=== PATIENT | female | born 1960 | race African-American/Black ===

== ENCOUNTER 2021-07-19 21:25 | Inpatient (IN) | payer OTHER ==
[2021-07-19 23:58] VITALS: BMI 29.8
[2021-07-20] MEDS ORDERED: ACETAMINOPHEN 325 MG TABLET (FP) PO PRN (00:40)
[2021-07-20] MEDS ORDERED: MAGNESIUM HYDROX 2400MG/30ML ORAL SUSPENSION 30 ML CUP PO PRN (00:40)
[2021-07-20] MEDS ORDERED: NICOTINE 10 MG CARTRIDGE (INHALER) IH PRN (00:40)
[2021-07-20] MEDS ORDERED: MAG HYDROX/AL HYDROX/SIMETH 30 ML UNIT-DOSE CUP PO PRN (00:40)
[2021-07-20] MEDS ORDERED: BISMUTH SUBSALICYLATE 524 MG/30 ML PO PRN (00:40)
[2021-07-20] MEDS ORDERED: MAGNESIUM CITRATE 300 ML BOTTLE PO PRN (00:40)
[2021-07-20] MEDS ORDERED: MENTHOL/PHENOL 1 EACH UD MM PRN (00:40)
[2021-07-20] MEDS ORDERED: IBUPROFEN 400 MG TABLET (FP) PO PRN (00:40)
[2021-07-20] MEDS ORDERED: methaDONE HCL 10 MG TABLET (FOR DETOX USE ONLY) PO ONE (01:21)
[2021-07-20] MEDS ORDERED: methaDONE HCL 10 MG TABLET (FOR DETOX USE ONLY) ONE (03:21)
[2021-07-20] MEDS: diazePAM 5 MG TABLET PO SCH ×4 (04:09→22:37)
[2021-07-20] MEDS ORDERED: PRENATAL VITAMINS W/ FOLIC ACID TABLET (FP) PO SCH (10:00)
[2021-07-20] MEDS: NICOTINE 14 MG/24 HOURS TOPICAL PATCH TD SCH (10:32)
[2021-07-20] MEDS: METHOCARBAMOL 500 MG TABLET PO PRN (10:32)
[2021-07-20] MEDS: PRENATAL VITAMINS W/ FOLIC ACID TABLET (FP) PO SCH (10:32)
[2021-07-20] MEDS: LOSARTAN POTASSIUM 50 MG TABLET PO SCH (17:37)
[2021-07-20] MEDS ORDERED: FUROSEMIDE 20 MG TABLET (FP) PO ONE (22:25)
[2021-07-20] MEDS: THIAMINE HCL 100 MG TABLET (FP) PO SCH (22:37)
[2021-07-20] MEDS: MELATONIN 5 MG TABLETS PO SCH (22:37)
[2021-07-20] MEDS: METHYL SALICYLATE/MENTHOL OINT 30 GM TUBE TP SCH (22:39)
[2021-07-21] MEDS: diazePAM 5 MG TABLET PO SCH ×3 (06:04→22:40)
[2021-07-21] MEDS: ONDANSETRON *ODT* 4 MG TABLET SL PRN ×2 (06:05→17:41)
[2021-07-21] MEDS ORDERED: TRIMETHOBENZAMIDE HCL 200MG/2ML INJ IM ONE (06:22)
[2021-07-21] MEDS: diazePAM 5 MG TABLET PO PRN (09:17)
[2021-07-21] MEDS ORDERED: methaDONE HCL 10 MG TABLET (FOR DETOX USE ONLY) ONE (09:41)
[2021-07-21] MEDS: NICOTINE 14 MG/24 HOURS TOPICAL PATCH TD SCH (10:33)
[2021-07-21] MEDS: LOSARTAN POTASSIUM 50 MG TABLET PO SCH (10:35)
[2021-07-21] MEDS: PRENATAL VITAMINS W/ FOLIC ACID TABLET (FP) PO SCH (10:56)
[2021-07-21] MEDS: METHYL SALICYLATE/MENTHOL OINT 30 GM TUBE TP SCH ×2 (11:07→22:43)
[2021-07-21] MEDS: ACETAMINOPHEN 325 MG TABLET (FP) PO PRN ×2 (15:05→17:41)
[2021-07-21] MEDS ORDERED: TRIMETHOBENZAMIDE HCL 200MG/2ML INJ IM PRN (17:22)
[2021-07-21] MEDS ORDERED: cloNIDine HCL 0.1 MG TABLET PO ONE (17:23)
[2021-07-21] MEDS: cloNIDine HCL 0.1 MG TABLET PO PRN (17:47)
[2021-07-21] MEDS: MELATONIN 5 MG TABLETS PO SCH (22:40)
[2021-07-21] MEDS: THIAMINE HCL 100 MG TABLET (FP) PO SCH (22:40)
[2021-07-22] MEDS ORDERED: methaDONE HCL 10 MG TABLET (FOR DETOX USE ONLY) PO ONE ×2 (10:00→15:30)
[2021-07-22] MEDS: METHYL SALICYLATE/MENTHOL OINT 30 GM TUBE TP SCH ×2 (11:05→22:56)
[2021-07-22] MEDS: diazePAM 5 MG TABLET PO SCH ×2 (11:05→18:45)
[2021-07-22] MEDS: NICOTINE 14 MG/24 HOURS TOPICAL PATCH TD SCH (11:06)
[2021-07-22] MEDS: PRENATAL VITAMINS W/ FOLIC ACID TABLET (FP) PO SCH (11:06)
[2021-07-22] MEDS: LOSARTAN POTASSIUM 50 MG TABLET PO SCH (11:06)
[2021-07-22] MEDS: FUROSEMIDE 20 MG TABLET (FP) PO SCH (11:06)
[2021-07-22] MEDS: cloNIDine HCL 0.1 MG TABLET PO PRN ×2 (15:49→21:13)
[2021-07-22] MEDS: THIAMINE HCL 100 MG TABLET (FP) PO SCH (21:13)
[2021-07-22] MEDS: diazePAM 5 MG TABLET PO PRN (21:13)
[2021-07-22] MEDS: MELATONIN 5 MG TABLETS PO SCH (22:57)
[2021-07-23] MEDS: DICLOFENAC SODIUM 25 MG TABLET.DR PO PRN ×2 (01:02→09:04)
[2021-07-23] MEDS ORDERED: amLODIPine BESYLATE 5 MG TABLET (FP) PO ONE (01:17)
[2021-07-23] MEDS: METHOCARBAMOL 500 MG TABLET PO PRN ×2 (05:54→15:00)
[2021-07-23] MEDS ORDERED: diazePAM 5 MG TABLET PO ONE (06:00)
[2021-07-23] MEDS ORDERED: methaDONE HCL 10 MG TABLET (FOR DETOX USE ONLY) ONE (09:00)
[2021-07-23] MEDS: LOSARTAN POTASSIUM 50 MG TABLET PO SCH (09:02)
[2021-07-23] MEDS: amLODIPine BESYLATE 5 MG TABLET (FP) PO SCH (09:02)
[2021-07-23] MEDS: FUROSEMIDE 20 MG TABLET (FP) PO SCH (09:02)
[2021-07-23] MEDS: PRENATAL VITAMINS W/ FOLIC ACID TABLET (FP) PO SCH (09:04)
[2021-07-23] MEDS: NICOTINE 14 MG/24 HOURS TOPICAL PATCH TD SCH (09:05)
[2021-07-23] MEDS ORDERED: amLODIPine BESYLATE 5 MG TABLET (FP) PO SCH (10:00)
[2021-07-23] MEDS: METHYL SALICYLATE/MENTHOL OINT 30 GM TUBE TP SCH ×2 (11:08→22:27)
[2021-07-23] MEDS: ACETAMINOPHEN 325 MG TABLET (FP) PO PRN (15:00)
[2021-07-23] MEDS: MELATONIN 5 MG TABLETS PO SCH (22:27)
[2021-07-23] MEDS: THIAMINE HCL 100 MG TABLET (FP) PO SCH (22:27)
[2021-07-24] MEDS: METHOCARBAMOL 500 MG TABLET PO PRN ×3 (02:59→22:23)
[2021-07-24] MEDS ORDERED: methaDONE HCL 10 MG TABLET (FOR DETOX USE ONLY) PO ONE (10:00)
[2021-07-24] MEDS: LOSARTAN POTASSIUM 50 MG TABLET PO SCH (10:20)
[2021-07-24] MEDS: PRENATAL VITAMINS W/ FOLIC ACID TABLET (FP) PO SCH (10:20)
[2021-07-24] MEDS: FUROSEMIDE 20 MG TABLET (FP) PO SCH (10:21)
[2021-07-24] MEDS: NICOTINE 14 MG/24 HOURS TOPICAL PATCH TD SCH (10:21)
[2021-07-24] MEDS: METHYL SALICYLATE/MENTHOL OINT 30 GM TUBE TP SCH ×2 (10:21→22:01)
[2021-07-24] MEDS: amLODIPine BESYLATE 5 MG TABLET (FP) PO SCH (10:21)
[2021-07-24] MEDS: THIAMINE HCL 100 MG TABLET (FP) PO SCH (22:00)
[2021-07-24] MEDS: MELATONIN 5 MG TABLETS PO SCH (22:21)
[2021-07-24 23:02] VITALS: PULSE 93
[2021-07-25 07:17] VITALS: BP 144/98; TEMP 98.2
[2021-07-25] MEDS: PRENATAL VITAMINS W/ FOLIC ACID TABLET (FP) PO SCH (09:41)
[2021-07-25] MEDS: FUROSEMIDE 20 MG TABLET (FP) PO SCH (09:41)
[2021-07-25] MEDS: amLODIPine BESYLATE 5 MG TABLET (FP) PO SCH (09:41)
[2021-07-25] MEDS: LOSARTAN POTASSIUM 50 MG TABLET PO SCH (09:41)
== END 2021-07-25 10:10 | disposition home or self-care (01) | DRG 897 ==
LOC: YASAS 21:25 → Y6N 07-20 02:59
PROVIDERS: ADMIT Allergy & Immunology; ATTEND Allergy & Immunology
PROC: HZ2ZZZZ Detoxification Services for Substance Abuse Treatment (ICD-10-PCS; principal; 2021-07-20)
DX: F11.23 Opioid dependence with withdrawal (principal); F14.20 Cocaine dependence, uncomplicated; R78.81 Bacteremia; F10.230 Alcohol dependence with withdrawal, uncomplicated; F17.210 Nicotine dependence, cigarettes, uncomplicated; F19.24 Other psychoactive substance dependence with psychoactive substance-induced mood disorder; D86.9 Sarcoidosis, unspecified; I10 Essential (primary) hypertension; R50.9 Fever, unspecified; R00.0 Tachycardia, unspecified; Z88.0 Allergy status to penicillin; Z88.1 Allergy status to other antibiotic agents; Z88.8 Allergy status to other drugs, medicaments and biological substances
CPT/HCPCS: 36415; 71045-TC-FY; 80053; 81003; 83605; 84484; 85025; 85610; 85651; 85730; 86140; 86780; 87040; 87086; 87804; 93005; 93010; 96374; 99284-25; 99285-25; C9803; J0735; Q0162; U0003; U0005

== ENCOUNTER 2021-07-21 23:32 | Emergency (ER) | payer OTHER ==
[2021-07-21 23:47] VITALS: BMI 28.2
[2021-07-22 01:44] LABS: BASO % 0.4 % (0-2.0); HEMATOCRIT 43.7 % (32.4-45.2); HEMOGLOBIN 14.4 GM/dL (10.7-15.3); LYMPH % 14.4 % (8-40); MCHC 32.8 g/dl (32.0-36.0); MEAN CELL VOLUME 82.2 fl (80-96); MEAN PLT VOLUME 10.1 fl (7.5-11.1); MONO % 10.4 % (3.8-10.2); NEUT % 74.8 % (42.8-82.8); PLATELET COUNT 226 10^3/uL (134-434); RBC 5.32 M/mm3 (3.60-5.2); RDW 14.6 % (11.6-15.6); WHITE BLOOD COUNT 12.7 K/mm3 (4.0-10.0)
[2021-07-22 01:49] LABS: INR 0.96 (0.83-1.09); PROTHROMBIN TIME (PATIENT) 11.8 SEC (9.7-13.0)
[2021-07-22 01:53] LABS: ACTIVATED PTT 29.5 SECONDS (25.2-36.5)
[2021-07-22 02:00] LABS: CHLORIDE 97 mmol/L (98-107); SODIUM 135 mmol/L (136-145)
[2021-07-22 02:03] LABS: CALCIUM 9.6 mg/dL (8.5-10.1)
[2021-07-22 02:04] LABS: ALBUMIN 3.7 g/dl (3.4-5.0); ANION GAP 10 MMOL/L (8-16); BLOOD UREA NITROGEN 8.2 mg/dL (7-18); CO2 28 mmol/L (21-32); GLUCOSE,RANDOM 122 mg/dL (74-106)
[2021-07-22 02:07] LABS: CREATININE 0.7 mg/dL (0.55-1.3); SGPT/ALT 20 U/L (13-61)
[2021-07-22 02:08] LABS: BILIRUBIN,TOTAL 0.8 mg/dL (0.2-1); SGOT/AST 11 U/L (15-37)
[2021-07-22 02:11] LABS: ALK PHOS 89 U/L (45-117)
[2021-07-22 02:14] LABS: LACTIC ACID 2.6 mmol/L (0.4-2.0)
[2021-07-22 03:35] LABS: ERYTHROCYTE SEDIMENTATION RATE 2 mm/hr (0-30)
[2021-07-22] MEDS ORDERED: ACETAMINOPHEN 325 MG TABLET (FP) PO ONE (03:35)
[2021-07-22] MEDS ORDERED: LOSARTAN POTASSIUM 50 MG TABLET PO ONE (03:39)
[2021-07-22] MEDS ORDERED: LORazepam 2 MG/ML SDV VIAL IVPUSH ONE (03:39)
[2021-07-22] MEDS ORDERED: LOSARTAN POTASSIUM 50 MG TABLET ONE (04:12)
[2021-07-22] MEDS ORDERED: LORazepam 2 MG/ML SDV VIAL ONE (04:12)
[2021-07-22] MEDS ORDERED: ACETAMINOPHEN 325 MG TABLET (FP) ONE (04:12)
[2021-07-22 04:20] LABS: PH,URINE 8.5 (5.0-8.0); URINE APPEARANCE Clear; URINE BILIRUBIN Negative (NEGATIVE); URINE COLOR Yellow; URINE GLUCOSE (UA) Negative (NEGATIVE); URINE KETONE Negative (NEGATIVE); URINE LEUK ESTERASE Negative (NEGATIVE); URINE NITRITE Negative (NEGATIVE); URINE PROTEIN Negative (NEGATIVE); URINE UROBILINOGEN 0.2 mg/dL (0.2-1.0)
[2021-07-22] MEDS ORDERED: FUROSEMIDE 40 MG TABLET (FP) PO ONE (10:43)
[2021-07-22] MEDS ORDERED: FUROSEMIDE 40 MG TABLET (FP) ONE (10:49)
[2021-07-22 15:04] VITALS: BP 155/94; PULSE 78; TEMP 98
== END 2021-07-22 14:55 | disposition home or self-care (01) ==
LOC: JER 23:32
PROC: 3E033GC Introduction of Other Therapeutic Substance into Peripheral Vein, Percutaneous Approach (ICD-10-PCS; principal; 2021-07-21)
DX: R50.9 Fever, unspecified (principal); I10 Essential (primary) hypertension; F10.239 Alcohol dependence with withdrawal, unspecified
CPT/HCPCS: 36415; 71045-TC-FY; 80053; 81003; 83605; 84484; 85025; 85610; 85651; 85730; 86140; 87040; 87086; 87804; 93005; 93010; 96374; 99285-25; C9803; U0003; U0005

== ENCOUNTER 2021-07-23 15:24 | Emergency (ER) | payer OTHER ==
[2021-07-23 15:46] VITALS: BMI 29.8
[2021-07-23 16:35] LABS: BASO % 0.5 % (0-2.0); EOS % 0.1 % (0-4.5); HEMATOCRIT 48.7 % (32.4-45.2); HEMOGLOBIN 16.4 GM/dL (10.7-15.3); LYMPH % 19.8 % (8-40); MCH 27.9 pg (25.7-33.7); MCHC 33.7 g/dl (32.0-36.0); MEAN CELL VOLUME 82.8 fl (80-96); MEAN PLT VOLUME 10.3 fl (7.5-11.1); MONO % 9.8 % (3.8-10.2); NEUT % 69.8 % (42.8-82.8); PLATELET COUNT 249 10^3/uL (134-434); RBC 5.88 M/mm3 (3.60-5.2); RDW 14.6 % (11.6-15.6); WHITE BLOOD COUNT 13.3 K/mm3 (4.0-10.0)
[2021-07-23 17:04] LABS: CALCIUM 9.8 mg/dL (8.5-10.1)
[2021-07-23 17:05] LABS: BLOOD UREA NITROGEN 15.2 mg/dL (7-18)
[2021-07-23 17:08] LABS: BILIRUBIN,TOTAL 0.8 mg/dL (0.2-1); CREATININE 0.9 mg/dL (0.55-1.3); TOT PROT 8.4 g/dl (6.4-8.2)
[2021-07-23] MEDS ORDERED: LIDOCAINE 5% TOPICAL PATCH TP ONE (18:27)
[2021-07-23] MEDS ORDERED: LIDOCAINE 5% TOPICAL PATCH ONE (18:41)
[2021-07-23] MEDS ORDERED: LIDOCAINE PATCH REMOVAL MC SCH (22:00)
[2021-07-23] MEDS ORDERED: LORazepam 2 MG/ML SDV VIAL IM ONE (23:19)
[2021-07-23] MEDS ORDERED: LORazepam 2 MG/ML SDV VIAL ONE (23:20)
[2021-07-24 02:18] VITALS: BP 142/85; PULSE 79; TEMP 98.9
[2021-07-24] MEDS ORDERED: LORazepam 2 MG/ML SDV VIAL IM ONE (23:19)
== END 2021-07-24 02:18 ==
LOC: JER 15:24
PROC: 3E023NZ Introduction of Analgesics, Hypnotics, Sedatives into Muscle, Percutaneous Approach (ICD-10-PCS; principal; 2021-07-23)
DX: R79.9 Abnormal finding of blood chemistry, unspecified (principal)
CPT/HCPCS: 36415; 80053; 85025; 87040; 99284-25

== ENCOUNTER 2022-02-14 14:14 | Inpatient (IN) | payer OTHER ==
[2022-02-14] MEDS ORDERED: BENZOCAINE/MENTHOL (CHLORASEPTIC ) LOZENGE MM PRN (15:36)
[2022-02-14] MEDS ORDERED: MAGNESIUM CITRATE 300 ML BOTTLE PO PRN (15:36)
[2022-02-14] MEDS ORDERED: MAGNESIUM HYDROX 2400MG/30ML ORAL SUSPENSION 30 ML CUP PO PRN (15:36)
[2022-02-14] MEDS ORDERED: LOPERAMIDE HCL 2 MG CAPSULE PO PRN (15:36)
[2022-02-14] MEDS ORDERED: BISMUTH SUBSALICYLATE 262 MG/15 ML BTL PO PRN (15:36)
[2022-02-14] MEDS ORDERED: NICOTINE 10 MG CARTRIDGE (INHALER) IH PRN (15:36)
[2022-02-14] MEDS ORDERED: ONDANSETRON *ODT* 4 MG TABLET SL PRN (15:36)
[2022-02-14] MEDS ORDERED: chlordiazePOXIDE HCL 25 MG CAPSULE PO PRN (15:36)
[2022-02-14] MEDS ORDERED: NALOXONE HCL 0.4 MG/ML VIAL IM PRN (15:36)
[2022-02-14] MEDS ORDERED: methaDONE HCL 10 MG TABLET (FOR DETOX USE ONLY) PO ONE (15:36)
[2022-02-14] MEDS ORDERED: MAG HYDROX/AL HYDROX/SIMETH 30 ML UNIT-DOSE CUP PO PRN (15:36)
[2022-02-14] MEDS ORDERED: METHOCARBAMOL 500 MG TABLET PO PRN (15:36)
[2022-02-14] MEDS ORDERED: IBUPROFEN 400 MG TABLET (FP) PO PRN (15:36)
[2022-02-14] MEDS ORDERED: ACETAMINOPHEN 325 MG TABLET (FP) PO PRN ×2 (15:36)
[2022-02-14] MEDS ORDERED: DICYCLOMINE HCL 10 MG CAPSULE PO PRN (15:36)
[2022-02-14 15:56] VITALS: BMI 24.3
[2022-02-14] MEDS ORDERED: hydrOXYzine PAMOATE 25 MG CAPSULE (FP) PO SCH (18:00)
[2022-02-14] MEDS: THIAMINE HCL 100 MG TABLET (FP) PO SCH (23:09)
[2022-02-14] MEDS: MELATONIN 5 MG TABLETS PO SCH (23:09)
[2022-02-14] MEDS: chlordiazePOXIDE HCL 25 MG CAPSULE PO SCH (23:10)
[2022-02-15] MEDS: chlordiazePOXIDE HCL 25 MG CAPSULE PO SCH ×4 (07:12→22:45)
[2022-02-15] MEDS ORDERED: methaDONE HCL 10 MG TABLET (FOR DETOX USE ONLY) ONE (08:58)
[2022-02-15] MEDS: PRENATAL VITAMINS W/ FOLIC ACID TABLET (FP) PO SCH (11:09)
[2022-02-15 13:26] LABS: BLOOD UREA NITROGEN 11.4 mg/dL (7-18)
[2022-02-15 13:27] LABS: ALBUMIN 3.6 g/dl (3.4-5.0); CREATININE 0.7 mg/dL (0.55-1.3)
[2022-02-15 13:29] LABS: BILIRUBIN,TOTAL 0.9 mg/dL (0.2-1); CALCIUM 9.5 mg/dL (8.5-10.1); TOT PROT 7.5 g/dl (6.4-8.2)
[2022-02-15 13:37] LABS: HEMATOCRIT 43.6 % (32.4-45.2); HEMOGLOBIN 13.8 GM/dL (10.7-15.3); MCH 27.4 pg (25.7-33.7); MCHC 31.6 g/dl (32.0-36.0); MEAN CELL VOLUME 86.6 fl (80-96); MEAN PLT VOLUME 10.4 fl (7.5-11.1); PLATELET COUNT 213 10^3/uL (134-434); RBC 5.03 M/mm3 (3.60-5.2); RDW 13.5 % (11.6-15.6); WHITE BLOOD COUNT 5.3 K/mm3 (4.0-10.0)
[2022-02-15] MEDS: cloNIDine HCL 0.1 MG TABLET PO PRN ×2 (13:53→22:47)
[2022-02-15] MEDS: MELATONIN 5 MG TABLETS PO SCH (22:47)
[2022-02-15] MEDS: THIAMINE HCL 100 MG TABLET (FP) PO SCH (22:47)
[2022-02-16] MEDS ORDERED: TRIMETHOBENZAMIDE HCL 200MG/2ML INJ IM ONE (05:25)
[2022-02-16] MEDS: cloNIDine HCL 0.1 MG TABLET PO PRN (06:42)
[2022-02-16] MEDS: chlordiazePOXIDE HCL 25 MG CAPSULE PO SCH ×3 (06:42→18:47)
[2022-02-16] MEDS ORDERED: ONDANSETRON *ODT* 4 MG TABLET SL PRN (09:40)
[2022-02-16 09:43] VITALS: BP 185/109; PULSE 86; TEMP 97.1
[2022-02-16] MEDS ORDERED: hydrOXYzine PAMOATE 50 MG CAPSULE (FP) PO ONE (09:44)
[2022-02-16] MEDS ORDERED: methaDONE HCL 10 MG TABLET (FOR DETOX USE ONLY) PO ONE (10:00)
[2022-02-16] MEDS: PRENATAL VITAMINS W/ FOLIC ACID TABLET (FP) PO SCH (11:21)
[2022-02-16] MEDS ORDERED: TRIMETHOBENZAMIDE HCL 200MG/2ML INJ IM PRN (13:00)
[2022-02-16 16:07] LABS: SARS-CoV-2 NAA Detected (Not Detected)
[2022-02-17] MEDS ORDERED: chlordiazePOXIDE HCL 10 MG CAPSULE PO PRN
[2022-02-17] MEDS ORDERED: chlordiazePOXIDE HCL 10 MG CAPSULE PO SCH (05:00)
[2022-02-18] MEDS ORDERED: chlordiazePOXIDE HCL 10 MG CAPSULE PO SCH (05:00)
[2022-02-18] MEDS ORDERED: methaDONE HCL 10 MG TABLET (FOR DETOX USE ONLY) PO ONE (10:00)
[2022-02-19] MEDS ORDERED: chlordiazePOXIDE HCL 10 MG CAPSULE PO ONE (05:00)
== END 2022-02-16 23:05 | disposition short-term general hospital (02) | DRG 896 ==
LOC: YASAS 14:14 → Y3N 16:49
PROVIDERS: ADMIT Allergy & Immunology; ATTEND Allergy & Immunology
PROC: HZ2ZZZZ Detoxification Services for Substance Abuse Treatment (ICD-10-PCS; principal; 2022-02-14)
DX: F11.23 Opioid dependence with withdrawal (principal); U07.1 COVID-19; F10.230 Alcohol dependence with withdrawal, uncomplicated; F17.210 Nicotine dependence, cigarettes, uncomplicated; J42 Unspecified chronic bronchitis; Z88.0 Allergy status to penicillin; Z88.1 Allergy status to other antibiotic agents; Z88.8 Allergy status to other drugs, medicaments and biological substances
CPT/HCPCS: 36415; 80053; 85027; 86780; 93005; 93010; C9803-CS; J0735; U0003; U0005

== ENCOUNTER 2022-02-16 12:45 | Inpatient (IN) | payer OTHER ==
[2022-02-16 13:42] VITALS: BMI 30.4
[2022-02-16] MEDS ORDERED: DEXAMETHASONE SOD PHOSPHATE 4 MG/1 ML VIAL IVPUSH ONE (14:01)
[2022-02-16] MEDS ORDERED: DEXAMETHASONE SOD PHOSPHATE 10 MG/1 ML VIAL IVPUSH ONE (14:01)
[2022-02-16] MEDS ORDERED: ALBUTEROL SO4 2.5/IPRATROPIUM 0.5 INH SOL 3 ML VIAL.NEB. NEB ONE ×2 (14:09→14:37)
[2022-02-16] MEDS ORDERED: ACETAMINOPHEN 1000 MG/100 ML BAG IVPB ONE ×2 (14:10→14:27)
[2022-02-16] MEDS ORDERED: ONDANSETRON *ODT* 4 MG TABLET SL ONE (14:23)
[2022-02-16] MEDS ORDERED: ACETAMINOPHEN 500 MG TABLET (FP) PO ONE (14:23)
[2022-02-16] MEDS ORDERED: ONDANSETRON 4 MG/2 ML VIAL IVPUSH ONE (14:28)
[2022-02-16] MEDS ORDERED: DEXAMETHASONE SOD PHOSPHATE 10 MG/1 ML VIAL ONE (14:37)
[2022-02-16] MEDS ORDERED: ONDANSETRON 4 MG/2 ML VIAL ONE (14:37)
[2022-02-16] MEDS ORDERED: ACETAMINOPHEN INJECTION 100 ML IVPB ONE (14:37)
[2022-02-16 15:24] LABS: BASO % 0.7 % (0-2.0); EOS % 0.1 % (0-4.5); HEMATOCRIT 46.3 % (32.4-45.2); HEMOGLOBIN 15.2 GM/dL (10.7-15.3); LYMPH % 10.7 % (8-40); MCH 27.3 pg (25.7-33.7); MCHC 32.9 g/dl (32.0-36.0); MEAN CELL VOLUME 82.9 fl (80-96); MONO % 3.7 % (3.8-10.2); NEUT % 84.8 % (42.8-82.8); PH,URINE >= 9.0 (5.0-8.0); PLATELET COUNT 197 10^3/uL (134-434); RBC 5.58 M/mm3 (3.60-5.2); RDW 13.7 % (11.6-15.6); URINE APPEARANCE CLEAR; URINE BILIRUBIN NEGATIVE (NEGATIVE); URINE COLOR YELLOW; URINE GLUCOSE (UA) TRACE (NEGATIVE); URINE KETONE 1+ (NEGATIVE); URINE LEUK ESTERASE NEGATIVE (NEGATIVE); URINE NITRITE NEGATIVE (NEGATIVE); URINE PROTEIN NEGATIVE (NEGATIVE); URINE UROBILINOGEN 0.2 mg/dL (0.2-1.0); WHITE BLOOD COUNT 8.2 K/mm3 (4.0-10.0)
[2022-02-16 15:48] LABS: CALCIUM 9.2 mg/dL (8.5-10.1)
[2022-02-16 15:49] LABS: ALBUMIN 3.9 g/dl (3.4-5.0); BLOOD UREA NITROGEN 5.6 mg/dL (7-18)
[2022-02-16 15:52] LABS: CREATININE 0.7 mg/dL (0.55-1.3)
[2022-02-16 15:53] LABS: BILIRUBIN,TOTAL 0.5 mg/dL (0.2-1)
[2022-02-16 15:54] LABS: TOT PROT 8.2 g/dl (6.4-8.2)
[2022-02-16] MEDS ORDERED: ACETAMINOPHEN 325 MG TABLET (FP) PO PRN (16:25)
[2022-02-16] MEDS ORDERED: ALBUTEROL SO4 HFA INHALER IH PRN (16:25)
[2022-02-16] MEDS ORDERED: TRIMETHOBENZAMIDE HCL 200MG/2ML INJ IM PRN (16:27)
[2022-02-16] MEDS ORDERED: chlordiazePOXIDE HCL 25 MG CAPSULE PO PRN (16:29)
[2022-02-16] MEDS ORDERED: guaiFENesin 200 MG/10 ML 10 ML UNIT-DOSE CUPS PO PRN (16:33)
[2022-02-16] MEDS ORDERED: ACETAMINOPHEN 325 MG TABLET (FP) ONE (16:47)
[2022-02-16] MEDS ORDERED: LOSARTAN POTASSIUM 50 MG TABLET ONE (17:20)
[2022-02-16] MEDS ORDERED: DOXYCYCLINE HYCLATE 100 MG VIAL ONE (17:20)
[2022-02-16] MEDS ORDERED: amLODIPine BESYLATE 5 MG TABLET (FP) ONE (17:20)
[2022-02-16] MEDS: amLODIPine BESYLATE 5 MG TABLET (FP) PO SCH (17:35)
[2022-02-16] MEDS: LOSARTAN POTASSIUM 50 MG TABLET PO SCH (17:35)
[2022-02-16] MEDS: DOXYCYCLINE INJECTION 100 MG in DEXTROSE 5%-WATER 100 ML IVPB SCH (17:40)
[2022-02-16] MEDS ORDERED: chlordiazePOXIDE HCL 25 MG CAPSULE ONE (17:48)
[2022-02-16] MEDS: chlordiazePOXIDE HCL 25 MG CAPSULE PO SCH ×2 (17:50→23:59)
[2022-02-16 18:42] LABS: ARTERIAL BLD GAS O2 SATURATION 90.6 % (95-98); ARTERIAL BLOOD GAS BASE EXCESS -2.5 mmol/L (-2-2); ARTERIAL BLOOD GAS pH 7.455 (7.350-7.450)
[2022-02-16 18:43] LABS: ALLENS TEST POSITIVE
[2022-02-16] MEDS ORDERED: DOXYCYCLINE INJECTION 100 MG in DEXTROSE 5%-WATER 100 ML IVPB SCH (22:00)
[2022-02-16] MEDS ORDERED: ACETAMINOPHEN 500 MG TABLET (FP) PO PRN (22:02)
[2022-02-16] MEDS ORDERED: amLODIPine BESYLATE 5 MG TABLET (FP) PO ONE (23:29)
[2022-02-16] MEDS: BUDESONIDE/FORMETEROL FUMARATE 160/4.5 mcg INHALER IH SCH (23:49)
[2022-02-17] MEDS ORDERED: DOXYCYCLINE HYCLATE 100 MG VIAL ONE ×2 (05:02→17:36)
[2022-02-17] MEDS ORDERED: DEXTROSE 5%-WATER 100 ML IVPB ONE ×2 (05:03→17:36)
[2022-02-17] MEDS: chlordiazePOXIDE HCL 25 MG CAPSULE PO SCH ×4 (05:12→22:59)
[2022-02-17] MEDS: DOXYCYCLINE INJECTION 100 MG in DEXTROSE 5%-WATER 100 ML IVPB SCH ×2 (05:12→17:43)
[2022-02-17] MEDS ORDERED: LOSARTAN POTASSIUM 25 MG TABLET PO ONE (05:32)
[2022-02-17] MEDS: LOSARTAN POTASSIUM 50 MG TABLET PO SCH (09:16)
[2022-02-17] MEDS: amLODIPine BESYLATE 5 MG TABLET (FP) PO SCH (09:16)
[2022-02-17] MEDS: DEXAMETHASONE SOD PHOSPHATE 10 MG/1 ML VIAL IVPUSH SCH (09:20)
[2022-02-17] MEDS: ENOXAPARIN NA (PORCINE) 40 MG/0.4 ML DISP.SYRIN SQ SCH (09:20)
[2022-02-17] MEDS: FOLIC ACID 1 MG TABLET (FP) PO SCH (09:21)
[2022-02-17] MEDS: THIAMINE HCL 100 MG TABLET (FP) PO SCH (09:21)
[2022-02-17 09:34] LABS: BASO % 0.3 % (0-2.0); EOS % 0.1 % (0-4.5); HEMATOCRIT 48.9 % (32.4-45.2); HEMOGLOBIN 16.1 GM/dL (10.7-15.3); MCH 27.5 pg (25.7-33.7); MEAN CELL VOLUME 83.2 fl (80-96); MEAN PLT VOLUME 9.8 fl (7.5-11.1); MONO % 10.3 % (3.8-10.2); NEUT % 75.3 % (42.8-82.8); PLATELET COUNT 220 10^3/uL (134-434); RBC 5.88 M/mm3 (3.60-5.2); RDW 13.7 % (11.6-15.6); WHITE BLOOD COUNT 10.3 K/mm3 (4.0-10.0)
[2022-02-17] MEDS: BUDESONIDE/FORMETEROL FUMARATE 160/4.5 mcg INHALER IH SCH ×2 (09:36→22:59)
[2022-02-17 09:54] LABS: BLOOD UREA NITROGEN 6.7 mg/dL (7-18); CALCIUM 9.9 mg/dL (8.5-10.1)
[2022-02-17 09:57] LABS: CREATININE 0.7 mg/dL (0.55-1.3)
[2022-02-17] MEDS ORDERED: LOSARTAN POTASSIUM 50 MG TABLET PO ONE (12:45)
[2022-02-17] MEDS ORDERED: amLODIPine BESYLATE 5 MG TABLET (FP) PO ONE (12:45)
[2022-02-17] MEDS: NICOTINE 14 MG/24 HOURS TOPICAL PATCH TD SCH ×2 (13:09→13:40)
[2022-02-17] MEDS ORDERED: REMDESIVIR 200 MG in SODIUM CHLORIDE 250 ML IVPB ONE (14:00)
[2022-02-17] MEDS: FLUTICASONE PROP 0.05% 16 GM NASAL SPRAY NS SCH (22:55)
[2022-02-17] MEDS: GABAPENTIN 300 MG CAPSULE PO SCH (22:55)
[2022-02-17] MEDS ORDERED: DOCUSATE SODIUM 100 MG CAPSULE (FP) PO ONE (23:13)
[2022-02-18] MEDS ORDERED: MAG HYDROX/AL HYDROX/SIMETH -MYLANTA- ORAL SUSPENSION PO SCH
[2022-02-18] MEDS ORDERED: DEXTROSE 5%-WATER 100 ML IVPB ONE ×2 (05:32→16:55)
[2022-02-18] MEDS ORDERED: DOXYCYCLINE HYCLATE 100 MG VIAL ONE ×2 (05:32→16:55)
[2022-02-18] MEDS: chlordiazePOXIDE HCL 10 MG CAPSULE PO SCH ×4 (05:42→22:39)
[2022-02-18] MEDS: GABAPENTIN 300 MG CAPSULE PO SCH ×3 (05:43→22:39)
[2022-02-18] MEDS: DOXYCYCLINE INJECTION 100 MG in DEXTROSE 5%-WATER 100 ML IVPB SCH ×2 (05:43→16:58)
[2022-02-18] MEDS ORDERED: methaDONE HCL 10 MG TABLET PO ONE (06:00)
[2022-02-18 06:45] LABS: BASO % 0.6 % (0-2.0); HEMATOCRIT 51.5 % (32.4-45.2); HEMOGLOBIN 16.8 GM/dL (10.7-15.3); MCH 26.9 pg (25.7-33.7); MCHC 32.6 g/dl (32.0-36.0); MEAN CELL VOLUME 82.4 fl (80-96); MEAN PLT VOLUME 9.9 fl (7.5-11.1); MONO % 11.1 % (3.8-10.2); NEUT % 68.3 % (42.8-82.8); PLATELET COUNT 265 10^3/uL (134-434); RBC 6.25 M/mm3 (3.60-5.2); RDW 13.5 % (11.6-15.6); WHITE BLOOD COUNT 11.4 K/mm3 (4.0-10.0)
[2022-02-18 07:02] LABS: CALCIUM 9.5 mg/dL (8.5-10.1)
[2022-02-18 07:03] LABS: BLOOD UREA NITROGEN 12.1 mg/dL (7-18)
[2022-02-18 07:06] LABS: CREATININE 0.8 mg/dL (0.55-1.3)
[2022-02-18 07:07] LABS: TOT PROT 8.4 g/dl (6.4-8.2)
[2022-02-18 07:08] LABS: BILIRUBIN,TOTAL 0.8 mg/dL (0.2-1)
[2022-02-18] MEDS: THIAMINE HCL 100 MG TABLET (FP) PO SCH (09:29)
[2022-02-18] MEDS: FOLIC ACID 1 MG TABLET (FP) PO SCH (09:30)
[2022-02-18] MEDS: DEXAMETHASONE SOD PHOSPHATE 10 MG/1 ML VIAL IVPUSH SCH (09:30)
[2022-02-18] MEDS: amLODIPine BESYLATE 10 MG TABLET (FP) PO SCH (09:30)
[2022-02-18] MEDS: LOSARTAN POTASSIUM 50 MG TABLET PO SCH (09:30)
[2022-02-18] MEDS: TOPIRAMATE 200 MG TABLET PO SCH (09:31)
[2022-02-18] MEDS: ENOXAPARIN NA (PORCINE) 40 MG/0.4 ML DISP.SYRIN SQ SCH (09:31)
[2022-02-18] MEDS: BUDESONIDE/FORMETEROL FUMARATE 160/4.5 mcg INHALER IH SCH ×2 (09:31→22:43)
[2022-02-18] MEDS: FLUTICASONE PROP 0.05% 16 GM NASAL SPRAY NS SCH ×2 (09:32→22:43)
[2022-02-18] MEDS: NICOTINE 14 MG/24 HOURS TOPICAL PATCH TD SCH (09:32)
[2022-02-18] MEDS: REMDESIVIR 100 MG in SODIUM CHLORIDE 250 ML IVPB SCH (13:09)
[2022-02-18] MEDS ORDERED: POTASSIUM CHLORIDE TABS 20 MEQ TABLET.ER (FP) PO ONE (20:59)
[2022-02-18 23:27] LABS: MAGNESIUM 2.1 mg/dL (1.8-2.4)
[2022-02-18 23:31] LABS: PHOSPHOROUS 3.7 mg/dL (2.5-4.9)
[2022-02-19] MEDS ORDERED: chlordiazePOXIDE HCL 10 MG CAPSULE PO PRN
[2022-02-19] MEDS ORDERED: DEXTROSE 5%-WATER 100 ML IVPB ONE ×2 (05:08→17:01)
[2022-02-19] MEDS ORDERED: DOXYCYCLINE HYCLATE 100 MG VIAL ONE ×2 (05:08→17:01)
[2022-02-19] MEDS: chlordiazePOXIDE HCL 10 MG CAPSULE PO SCH ×2 (05:14→17:03)
[2022-02-19] MEDS: GABAPENTIN 300 MG CAPSULE PO SCH ×2 (05:14→14:05)
[2022-02-19] MEDS: DOXYCYCLINE INJECTION 100 MG in DEXTROSE 5%-WATER 100 ML IVPB SCH ×2 (05:15→17:02)
[2022-02-19 10:14] LABS: BASO % 0.3 % (0-2.0); EOS % 0.1 % (0-4.5); HEMATOCRIT 48.6 % (32.4-45.2); HEMOGLOBIN 15.7 GM/dL (10.7-15.3); LYMPH % 30.1 % (8-40); MCHC 32.4 g/dl (32.0-36.0); MEAN CELL VOLUME 83.1 fl (80-96); MONO % 8.9 % (3.8-10.2); NEUT % 60.6 % (42.8-82.8); PLATELET COUNT 242 10^3/uL (134-434); RBC 5.84 M/mm3 (3.60-5.2); RDW 13.5 % (11.6-15.6); WHITE BLOOD COUNT 12.1 K/mm3 (4.0-10.0)
[2022-02-19 10:38] LABS: MAGNESIUM 2.2 mg/dL (1.8-2.4)
[2022-02-19] MEDS: ENOXAPARIN NA (PORCINE) 40 MG/0.4 ML DISP.SYRIN SQ SCH (10:40)
[2022-02-19] MEDS: DEXAMETHASONE SOD PHOSPHATE 10 MG/1 ML VIAL IVPUSH SCH (10:40)
[2022-02-19] MEDS: THIAMINE HCL 100 MG TABLET (FP) PO SCH (10:40)
[2022-02-19] MEDS: LOSARTAN POTASSIUM 50 MG TABLET PO SCH (10:40)
[2022-02-19] MEDS: amLODIPine BESYLATE 10 MG TABLET (FP) PO SCH (10:40)
[2022-02-19] MEDS: FOLIC ACID 1 MG TABLET (FP) PO SCH (10:41)
[2022-02-19 10:42] LABS: PHOSPHOROUS 4.1 mg/dL (2.5-4.9)
[2022-02-19] MEDS: NICOTINE 14 MG/24 HOURS TOPICAL PATCH TD SCH (10:42)
[2022-02-19] MEDS: TOPIRAMATE 200 MG TABLET PO SCH (10:42)
[2022-02-19 10:45] LABS: ALBUMIN 3.5 g/dl (3.4-5.0)
[2022-02-19 10:46] LABS: BLOOD UREA NITROGEN 19.6 mg/dL (7-18)
[2022-02-19 10:49] LABS: CREATININE 0.9 mg/dL (0.55-1.3)
[2022-02-19 10:50] LABS: TOT PROT 7.4 g/dl (6.4-8.2)
[2022-02-19] MEDS: FLUTICASONE PROP 0.05% 16 GM NASAL SPRAY NS SCH (10:51)
[2022-02-19] MEDS: BUDESONIDE/FORMETEROL FUMARATE 160/4.5 mcg INHALER IH SCH (10:52)
[2022-02-19] MEDS: REMDESIVIR 100 MG in SODIUM CHLORIDE 250 ML IVPB SCH (14:05)
[2022-02-19 22:21] VITALS: BP 144/92; PULSE 98; TEMP 98.4
[2022-02-20] MEDS ORDERED: chlordiazePOXIDE HCL 10 MG CAPSULE PO ONE (05:00)
== END 2022-02-19 20:00 | disposition left against medical advice (07) | DRG 177 ==
LOC: JER 12:45 → JERBED 16:19 → J4S 23:22
PROVIDERS: ADMIT Internal Medicine; ATTEND Internal Medicine
PROC: HZ2ZZZZ Detoxification Services for Substance Abuse Treatment (ICD-10-PCS; principal; 2022-02-16)
PROC: 3E0333Z Introduction of Anti-inflammatory into Peripheral Vein, Percutaneous Approach (ICD-10-PCS; 2022-02-16)
DX: U07.1 COVID-19 (principal); J12.82 Pneumonia due to coronavirus disease 2019; J96.01 Acute respiratory failure with hypoxia; F11.23 Opioid dependence with withdrawal; F10.239 Alcohol dependence with withdrawal, unspecified; I10 Essential (primary) hypertension; F17.210 Nicotine dependence, cigarettes, uncomplicated; M54.9 Dorsalgia, unspecified; J45.909 Unspecified asthma, uncomplicated; R94.31 Abnormal electrocardiogram [ECG] [EKG]
CPT/HCPCS: 36415; 36600; 71045-TC-FY; 80048; 80053; 81003; 82728; 82803; 83615; 83735; 84100; 85025; 85651; 86140; 87086; 93005; 93010; 99285-25; C9399; J1100

== ENCOUNTER 2022-07-08 14:23 | Inpatient (IN) | payer OTHER ==
[2022-07-08 16:27] VITALS: BMI 29.8
[2022-07-08] MEDS ORDERED: BISMUTH SUBSALICYLATE 524 MG/30 ML PO PRN (17:43)
[2022-07-08] MEDS ORDERED: ACETAMINOPHEN 325 MG TABLET (FP) PO PRN ×2 (17:43)
[2022-07-08] MEDS ORDERED: BENZOCAINE/MENTHOL (CHLORASEPTIC ) LOZENGE MM PRN (17:43)
[2022-07-08] MEDS ORDERED: IBUPROFEN 400 MG TABLET (FP) PO PRN (17:43)
[2022-07-08] MEDS ORDERED: MAGNESIUM CITRATE 300 ML BOTTLE PO PRN (17:43)
[2022-07-08] MEDS ORDERED: MAG HYDROX/AL HYDROX/SIMETH 30 ML UNIT-DOSE CUP PO PRN (17:43)
[2022-07-08] MEDS ORDERED: NALOXONE HCL 0.4 MG/ML VIAL IM PRN (17:43)
[2022-07-08] MEDS ORDERED: chlordiazePOXIDE HCL 25 MG CAPSULE PO PRN (17:43)
[2022-07-08] MEDS ORDERED: NICOTINE 10 MG CARTRIDGE (INHALER) IH PRN (17:43)
[2022-07-08] MEDS ORDERED: methaDONE HCL 10 MG TABLET (FOR DETOX USE ONLY) PO ONE (17:43)
[2022-07-08] MEDS ORDERED: MAGNESIUM HYDROX 2400MG/30ML ORAL SUSPENSION 30 ML CUP PO PRN (17:43)
[2022-07-08] MEDS ORDERED: DICYCLOMINE HCL 10 MG CAPSULE PO PRN (17:43)
[2022-07-08] MEDS ORDERED: LOPERAMIDE HCL 2 MG CAPSULE PO PRN (17:43)
[2022-07-08] MEDS ORDERED: methaDONE HCL 10 MG TABLET (FOR DETOX USE ONLY) ONE (18:01)
[2022-07-08] MEDS: METHOCARBAMOL 500 MG TABLET PO PRN (21:34)
[2022-07-08] MEDS: MELATONIN 5 MG TABLETS PO SCH (21:34)
[2022-07-08] MEDS: chlordiazePOXIDE HCL 25 MG CAPSULE PO SCH (23:24)
[2022-07-08] MEDS: THIAMINE HCL 100 MG TABLET (FP) PO SCH (23:26)
[2022-07-09] MEDS: chlordiazePOXIDE HCL 25 MG CAPSULE PO SCH ×4 (06:00→22:58)
[2022-07-09] MEDS: PRENATAL VITAMINS W/ FOLIC ACID TABLET (FP) PO SCH (11:05)
[2022-07-09] MEDS: NICOTINE 7 MG/24 HOURS TOPICAL PATCH TD SCH (11:05)
[2022-07-09 11:55] LABS: CALCIUM 9.8 mg/dL (8.5-10.1)
[2022-07-09 11:56] LABS: BLOOD UREA NITROGEN 12.7 mg/dL (7-18)
[2022-07-09 11:57] LABS: CREATININE 0.7 mg/dL (0.55-1.3)
[2022-07-09 11:59] LABS: BILIRUBIN,TOTAL 0.6 mg/dL (0.2-1); TOT PROT 7.9 g/dl (6.4-8.2)
[2022-07-09 12:42] LABS: HEMATOCRIT 41.7 % (32.4-45.2); HEMOGLOBIN 13.6 GM/dL (10.7-15.3); MCH 28.4 pg (25.7-33.7); MCHC 32.7 g/dl (32.0-36.0); MEAN CELL VOLUME 86.8 fl (80-96); PLATELET COUNT 209 10^3/uL (134-434); RBC 4.81 M/mm3 (3.60-5.2); WHITE BLOOD COUNT 8.3 K/mm3 (4.0-10.0)
[2022-07-09] MEDS: METHOCARBAMOL 500 MG TABLET PO PRN ×2 (18:20→22:58)
[2022-07-09] MEDS: THIAMINE HCL 100 MG TABLET (FP) PO SCH (22:57)
[2022-07-09] MEDS: MELATONIN 5 MG TABLETS PO SCH (22:57)
[2022-07-10] MEDS: chlordiazePOXIDE HCL 25 MG CAPSULE PO SCH ×4 (05:39→23:53)
[2022-07-10] MEDS ORDERED: ONDANSETRON *ODT* 4 MG TABLET SL PRN (07:41)
[2022-07-10] MEDS: cloNIDine HCL 0.1 MG TABLET PO PRN ×2 (07:47→17:02)
[2022-07-10] MEDS: amLODIPine BESYLATE 5 MG TABLET (FP) PO SCH (09:50)
[2022-07-10] MEDS: METHOCARBAMOL 500 MG TABLET PO PRN ×2 (09:50→16:56)
[2022-07-10] MEDS: LOSARTAN POTASSIUM 50 MG TABLET PO SCH (09:50)
[2022-07-10] MEDS: PRENATAL VITAMINS W/ FOLIC ACID TABLET (FP) PO SCH (09:50)
[2022-07-10] MEDS ORDERED: methaDONE HCL 10 MG TABLET (FOR DETOX USE ONLY) PO ONE (10:00)
[2022-07-10] MEDS ORDERED: DICYCLOMINE HCL 10 MG CAPSULE PO ONE (10:30)
[2022-07-10] MEDS: NICOTINE 7 MG/24 HOURS TOPICAL PATCH TD SCH (11:08)
[2022-07-10] MEDS: FUROSEMIDE 40 MG TABLET (FP) PO SCH (11:09)
[2022-07-10] MEDS ORDERED: TRIMETHOBENZAMIDE HCL 200MG/2ML INJ IM PRN (13:46)
[2022-07-10] MEDS ORDERED: METOPROLOL TARTRATE 50 MG TABLET (FP) PO ONE (19:48)
[2022-07-10] MEDS: IBUPROFEN 600 MG TABLET (FP) PO PRN (19:59)
[2022-07-10] MEDS: MELATONIN 5 MG TABLETS PO SCH (23:51)
[2022-07-10] MEDS: THIAMINE HCL 100 MG TABLET (FP) PO SCH (23:52)
[2022-07-11] MEDS ORDERED: chlordiazePOXIDE HCL 10 MG CAPSULE PO PRN
[2022-07-11] MEDS: METHOCARBAMOL 500 MG TABLET PO PRN ×2 (05:59→17:59)
[2022-07-11] MEDS: chlordiazePOXIDE HCL 10 MG CAPSULE PO SCH ×4 (06:00→22:12)
[2022-07-11] MEDS: PRENATAL VITAMINS W/ FOLIC ACID TABLET (FP) PO SCH (11:04)
[2022-07-11] MEDS: NICOTINE 7 MG/24 HOURS TOPICAL PATCH TD SCH (11:04)
[2022-07-11] MEDS: FUROSEMIDE 40 MG TABLET (FP) PO SCH (11:04)
[2022-07-11] MEDS: LOSARTAN POTASSIUM 50 MG TABLET PO SCH (11:04)
[2022-07-11] MEDS: amLODIPine BESYLATE 5 MG TABLET (FP) PO SCH (11:04)
[2022-07-11] MEDS ORDERED: METOPROLOL TARTRATE 25 MG TABLET (FP) PO ONE (17:46)
[2022-07-11] MEDS: THIAMINE HCL 100 MG TABLET (FP) PO SCH (22:12)
[2022-07-11] MEDS: MELATONIN 5 MG TABLETS PO SCH (22:12)
[2022-07-12] MEDS: METHOCARBAMOL 500 MG TABLET PO PRN ×3 (01:20→22:50)
[2022-07-12] MEDS: chlordiazePOXIDE HCL 10 MG CAPSULE PO SCH ×2 (06:06→19:07)
[2022-07-12] MEDS ORDERED: cloNIDine HCL 0.1 MG TABLET PO ONE (07:54)
[2022-07-12] MEDS ORDERED: methaDONE HCL 10 MG TABLET (FOR DETOX USE ONLY) PO ONE (10:00)
[2022-07-12] MEDS: FUROSEMIDE 40 MG TABLET (FP) PO SCH (10:15)
[2022-07-12] MEDS: amLODIPine BESYLATE 5 MG TABLET (FP) PO SCH (10:15)
[2022-07-12] MEDS: LOSARTAN POTASSIUM 50 MG TABLET PO SCH (10:15)
[2022-07-12] MEDS: PRENATAL VITAMINS W/ FOLIC ACID TABLET (FP) PO SCH (10:15)
[2022-07-12] MEDS: NICOTINE 7 MG/24 HOURS TOPICAL PATCH TD SCH (10:16)
[2022-07-12] MEDS: MELATONIN 5 MG TABLETS PO SCH (22:49)
[2022-07-12] MEDS: THIAMINE HCL 100 MG TABLET (FP) PO SCH (22:49)
[2022-07-13] MEDS ORDERED: chlordiazePOXIDE HCL 10 MG CAPSULE PO ONE (05:00)
[2022-07-13 09:28] VITALS: BP 141/78; PULSE 108; RESP 16; TEMP 96.9
[2022-07-13] MEDS: FUROSEMIDE 40 MG TABLET (FP) PO SCH (09:40)
[2022-07-13] MEDS: PRENATAL VITAMINS W/ FOLIC ACID TABLET (FP) PO SCH (09:40)
[2022-07-13] MEDS: LOSARTAN POTASSIUM 50 MG TABLET PO SCH (09:40)
[2022-07-13] MEDS: amLODIPine BESYLATE 5 MG TABLET (FP) PO SCH (09:40)
[2022-07-13] MEDS: METHOCARBAMOL 500 MG TABLET PO PRN (09:41)
[2022-07-13] MEDS: IBUPROFEN 600 MG TABLET (FP) PO PRN (09:41)
[2022-07-13] MEDS: NICOTINE 7 MG/24 HOURS TOPICAL PATCH TD SCH (09:43)
== END 2022-07-13 11:54 | disposition home or self-care (01) | DRG 897 ==
LOC: YASAS 14:23 → Y6N 19:52
PROVIDERS: ADMIT Allergy & Immunology; ATTEND Surgery
PROC: HZ2ZZZZ Detoxification Services for Substance Abuse Treatment (ICD-10-PCS; principal; 2022-07-08)
DX: F11.23 Opioid dependence with withdrawal (principal); F10.230 Alcohol dependence with withdrawal, uncomplicated; F17.210 Nicotine dependence, cigarettes, uncomplicated; I10 Essential (primary) hypertension; R50.9 Fever, unspecified; R73.09 Other abnormal glucose; Z88.0 Allergy status to penicillin; Z88.1 Allergy status to other antibiotic agents; Z88.8 Allergy status to other drugs, medicaments and biological substances; Z86.16 Personal history of COVID-19
CPT/HCPCS: 36415; 80053; 82962; 85027; 86780; 87811; C9803-CS; Q0162; U0003; U0005